=== PATIENT | female | born 1990 | race Caucasian/White ===

== ENCOUNTER 2018-10-24 08:33 | Inpatient (IN) | payer OTHER ==
[2018-10-24] MEDS ORDERED: Buffered Lidocaine 1% SYRIN* 1 ML/SYRINGE INTRADERM ONE (08:58)
[2018-10-24] MEDS ORDERED: Lactated Ringers 1000 ML Bag* 1,000 ML IV ONE ×2 (08:58→10:34)
[2018-10-24] MEDS ORDERED: Lactated Ringers 1000 ML Bag* 1,000 ML IV SCH ×4 (09:00→21:00)
[2018-10-24] MEDS ORDERED: OBEPIDURAL* 250 ML EPIDURAL ONE (09:37)
[2018-10-24 09:40] LABS: ABS Basophils 0 10^3/ul (0-0.2); ABS Eosinophils 0.1 10^3/ul (0-0.6); ABS Lymphocytes 1.8 10^3/ul (1.0-4.8); ABS Monocytes 0.8 10^3/ul (0-0.8); ABS Neutrophils 8.4 10^3/ul (1.5-7.7); ABS Nucleated RBC 0 10^3/ul; Eosinophil % 0.5 %; Hematocrit 36 % (33-41); Hemoglobin 12.3 g/dL (12.0-16.0); Lymphocyte % 16.6 %; Mean Corpuscular HGB Conc 34 g/dL (31-36); Mean Corpuscular Hemoglobin 30 pg (27-31); Mean Corpuscular Volume 88 fL (80-97); Nucleated Red Blood Cells % 0.2; Platelet Count 202 10^3/uL (150-450); Red Blood Count 4.11 10^6 /uL (3.70-4.87); Red Cell Distribution Width 13 % (10.5-15); White Blood Count 11.1 10^3/uL (3.5-10.8)
--- NOTE | 2018-10-24 09:49 | HP ---
General Information - Reason for Visit 28 yo at 40 weeks 1/7 days reports onset of strong uterine contractions about 4-5 minutes apart beginning at 0630. Denies LOF. - General Information Maternal Age: 28 Grav: 2 Para: 1 SAB: 0 IEA: 1 Estimated Due Date: 10/23/18 Determined By: LMP Maternal Blood Type and Rh: A Positive - Results this Serology/RPR Result: Non-Reactive Rubella Result: Immune HBsAg Result: Negative HIV Result: Negative GBS Culture Result: Negative Past Medical History Delivery History: See Records - Primipara Pertinent Past Medical History: Non-Contributory Pertinent Past Surgical History: None Pertinent Family History: See Records - hypertension - Antepartal Records Antepartal Records: Reviewed, Uncomplicated Review of Systems Constitutional: Uncomfortable CV Complaint: No Respiratory: Shortness of Breath: No Gastrointestinal: No Nausea/Vomiting, Normal Bowel Movement Genitourinary: No Dysuria, No Bleeding, No Leaking Fluid Musculoskeletal: No Epigastric Pain, Contractions Neurological: No Headache, No Visual Changes Movement: Normal Exam Allergies/Adverse Reactions: Allergies No Known Allergies Allergy (Verified 10/24/18 08:52) T: 98.0, P:70, R:18, B/P: 140/84 Lab Values - Entire Visit: Laboratory Tests 10/24/18 09:20 WBC 11.1 H RBC 4.11 Hgb 12.3 Hct 36 MCV 88 MCH 30 MCHC 34 RDW 13 Plt Count 202 MPV 10.0 Neut % (Auto) 75.7 Lymph % (Auto) 16.6 Henderson % (Auto) 6.9 Eos % (Auto) 0.5 Baso % (Auto) 0.3 Absolute Neuts (auto) 8.4 H Absolute Lymphs (auto) 1.8 Absolute Monos (auto) 0.8 Absolute Eos (auto) 0.1 Absolute Basos (auto) 0 Absolute Nucleated RBC 0 Nucleated RBC % 0.2 - Measurements Height: 5 ft 4.25 in Weight: 66.224 kg Weight in lbs: 146.585537 Body Mass Index (BMI): 24.8 Pre- Weight: 49.895 kg Weight Gained This : 36 lbs and 0 ozs - Exam Breast: Breast Exam Deferred CVA: No CVA Tenderness Extremities: No Edema Heart: Normal Rhythm/Heart Sounds HEENT: No Significant Findings Lungs: Clear Bilaterally Rectal: Rectal Exam Deferred Reflexes: DTR 2+ Thyroid: No Thyromegaly - Abdominal Exam Abdomen Exam: Non-Tender, Fundal Height Consistent with Dates - Ultrasound/Biophysical Profile Ultrasound Status: Not Done Targeted Exam Findings Estimated Weight: 6.5 lb Cervical Exam: 5cm Effacement: 100% Station: 0 - on admission Presenting Part: Vertex Bleeding/Discharge: Bloody Show EFM Findings - External Monitor Findings Baseline Heart Rate: 120 External Monitor Findings: Accelerations Present, No Pattern of Variable or Late Decelerations, Variability Moderate, Baseline Stable Contractions: Regular, Strong, 45-90 Seconds Contraction Frequency: q3min Assessment/Plan - Assessment 28 yo at 40-1/7 weeks reports onset of strong uterine contractions every 4- 5 minutes apart beginning at 0630. movement is normal, denies leaking of fluid. - Plan Plan: Admit - Anticipate Vaginal Delivery Plan Comment: Patient in active labor on arrival, coping well. At this time requests an epidural, anesthesia has arrived - Date/Time of Admission Date of Admission: 10/24/18 Time of Admission: 09:05
[2018-10-24] MEDS ORDERED: Lactated Ringers 1000 ML Bag* 500 ML IV PRN ×2 (10:34)
[2018-10-24] MEDS ORDERED: Famotidine TAB* 20 MG PO PRN (10:34)
[2018-10-24] MEDS ORDERED: Sodium Citrate/Citric Acid* 15 ML UDC PO PRN (10:34)
[2018-10-24] MEDS ORDERED: Phenylephrine 40 MCG/ML SYRINGE IV PUSH PRN ×2 (10:34)
--- NOTE | 2018-10-24 10:55 | PN ---
Progress Note - Progress Note Date of Service: 10/24/18 SOAP: Subjective: Pt received epidural, somewhat one-sided. Dr. Douglas offered to bolus or reposition, but pt declines, states level of discomfort is acceptable. Reports some lower sensation on the right, and some back pain with ctx. Coping well. at bedside, supportive. Objective: FHR: Baseline 125, moderate variability, + accels, no decels UCs: 2-4 minutes, strong Membranes intact Cervical exam deferred, last exam was 6cm/ 100%/ 0 station BP: have been mildly elevated, most recent 136/86 Assessment: 28 year old in active labor, moderately comfortable with epidural, coping well. No evidence of acidemia. BP elevated, stable. Membranes intact. Plan: Monitor BP, will consider PEC labs if it remains elevated. Will send urine for protein. Anticipate .
[2018-10-24] MEDS ORDERED: OBEPIDURAL* 250 ML EPIDURAL SCH (11:00)
[2018-10-24 11:33] LABS: Urine Appearance Cloudy; Urine Bacteria Absent (Absent); Urine Bilirubin Negative (Negative); Urine Blood 1+ (Negative); Urine Color Yellow; Urine Glucose Negative (Negative); Urine Ketones Negative (Negative); Urine Nitrite Negative (Negative); Urine Protein Negative (Negative); Urine Red Blood Cell 3+(>10/hpf) (Absent); Urine Specific Gravity 1.019 (1.010-1.030); Urine Squamous Epithelial Cell Present (Absent); Urine Urobilinogen Negative (Negative); Urine White Blood Cell 1+(6-10/hpf) (Absent)
--- NOTE | 2018-10-24 13:08 | PN ---
Progress Note - Progress Note Date of Service: 10/24/18 SOAP: Subjective: Pt very comfortable with epidural, happy with decision to get it. Objective: Cervix: 8-9 cm/ 100%/ 0 station/ vtx/ bulging bag FHR: Baseline 135/ moderate variability/ + accels/ no decels UCs: 2-3 minutes membranes intact BP 146/75 Assessment: Pt making good progress. No evidence of acidemia or chorioamnionitis. BP remains stable, mildly elevated. Urinalysis negative for protein. Plan: Consider AROM if SROM does not occur. Anticipate .
--- NOTE | 2018-10-24 14:56 | PN ---
Progress Note - Progress Note Date of Service: 10/24/18 SOAP: Subjective: Pt reports some increased pressure. Fairly comfortable, coping well. Pt's states that she is nervous. Denies headache, denies vision changes. Objective: FHR: baseline 125, moderate variability, + accels, no decels UCs: Q2 BP: 155/89 Cervix: 9cm/ bulging bag/ 100%/ 0 station Assessment: 28 year old in active labor, no evidence of acidemia, with elevated BPs, possible gestational HTN vs preeclampsia, labs pending. Membranes intact. Making good progress. Plan: Consider AROM. Try side-lying position with peanut ball. Anticipate .
[2018-10-24 15:26] LABS: Albumin 3.6 g/dL (3.2-5.2); Albumin/Globulin Ratio 1.4 (1-3); BUN/Creatinine Ratio 17.2 (8-20); Calcium 8.6 mg/dL (8.6-10.3); EGFR African American 131.8 (>60); Globulin 2.5 g/dL (2-4); Potassium 3.9 mmol/L (3.5-5.0); Total Bilirubin 0.4 mg/dL (0.2-1.0); Total Protein 6.1 g/dL (6.4-8.9); Uric Acid 5.2 mg/dL (2.3-6.6)
--- NOTE | 2018-10-24 16:28 | PN ---
Progress Note - Progress Note Date of Service: 10/24/18 SOAP: Subjective: Pt comfortable w/ ctx Objective: Pt with prolonged decel as low as 80 but returning to >100 several times before return to baseline. Total length of decel 7 minutes, resolved with position change and O2. FHR currently baseline 140/ moderate variability/+ accels Cervix: fully dilated, bulging bag of monique, +1 station BP:148/82 Ctx Q 1-2 minutes Assessment: Pt fully dilated. Deceleration resolved, currently no evidence of acidemia. BP remains elevated but stable. Plan: FHR now recovered following decel. Will initiate trial of pushing, consider AROM.
[2018-10-24] MEDS ORDERED: Oxytocin in LR* 20 UNITS/1,000 ML BAG IVPB ONE (16:53)
--- NOTE | 2018-10-24 19:53 | OP ---
Operative Report - Blank - Operative Report Date of Operation: 10/24/18 Note: Operative report Preop diagnosis-Spontaneous vaginal delivery with a 3rd degree vaginal/perineal laceration Post Op diagnosis- Same Procedure- Repair of vaginal 3rd degree laceration Surgeon-Dr. Jorge Caldwell EBL none Anesthesia 10cc 15 lidocaine local infiltration Complications none Findings. Pelvic exam revealed a third degree laceration extending from the mid vagina superiorly to the the superior epithelium of the external rectum. Gloved exam did not revealed extension into the rectal mucosa. Procedure. The patient was in the delivery room in dorsal lithotomy position. Exam revealed findings as noted above. The borders of the laceration were infiltrated with 1% lidocaine. The patient reported numbing of the surgical site. The laceration was repaired with a mixed of interrupted, continous and subcuticular sutures. There was good approximation of the submucous vaginal layer, the perineal muscle capsule and the subcutaneous layer of the perineum and superior aspect of the external rectal epithelium. Patient tolerated the procedure well. Instrument and sponge counts were wnl.
[2018-10-24] MEDS ORDERED: Glycerin ADULT SUPP PR PRN (20:15)
[2018-10-24] MEDS ORDERED: Acetaminophen TAB* 325 MG PO PRN (20:15)
[2018-10-24] MEDS ORDERED: Simethicone TAB* 80 MG TAB.CHEW PO SCH (21:00)
[2018-10-24] MEDS ORDERED: Oxytocin in LR* 20 UNITS/1,000 ML BAG IVPB SCH (21:00)
[2018-10-24] MEDS: Docusate CAP* 100 MG PO SCH (21:28)
[2018-10-24] MEDS: Witch Hazel PAD* JAR TOPICAL PRN (21:28)
[2018-10-24] MEDS: Dibucaine 1% 28.35 GM TUBE PR PRN (21:28)
[2018-10-24] MEDS: Ibuprofen TAB* 600 MG PO PRN (21:28)
--- NOTE | 2018-10-24 22:09 | PROCNOTE ---
[facility] OB: Delivery Note - Delivery A Date of : 10/24/18 Time of : 18:18 [place] Sex: Female Weight at : 3.345 kg Score 1 Minute: 8 Score 5 Minutes: 9 Gestational Age in Weeks and Days at Delivery: 40 Weeks and 1 Days Delivery Method: Spontaneous Vaginal Labor: Spontaneous Did Patient attempt ?: N/A, No Previous Amniotic Fluid: Meconium Estimated Blood Loss: 500 Anesthesia/Analgesia: CEI for Labor Delivered By: Keisha Rivera - Nursery Level of Nursery: Regular/Bedside - Perineum Perineal Injury: 3rd Degree Extension - repaired by Dr. Caldwell Perineal Repair: by Dr. Caldwell - Events Delivery Events of Note: Pitocin Only After Delivery, Supplemental O2 to Mother - briefly following deceleration - Additional Delivery Notes Additional Delivery Notes: Pt admitted to labor and delivery in spontaneous labor at 40 1/7 weeks gestation. Pt made steady progress. She eventually requested and received an epidural with good relief of pain. Pt continued to make steady progress. At full dilation AROM performed to meconium-stained fluid. Pt coached on pushing and began to push with good effort and steady descent. As 's head just began to be visible with pushing, pt delivered head with one strong push. Shoulders followed easily. Infant placed on maternal abdomen with spontaneous cry and HR>100 bpm. After cord pulsation ceased cord clamped x2 and cut. Placenta soon delivered with gentle cord traction, jennifer with trailing membranes, teased out with clamps. Pt's bleeding was minimal after an initial gush, fundus firm. Pitocin started at 200 cc/ hr. Evaluation of perineum revealed third degree laceration, bleeding moderately. Dr. Caldwell called to bedside and pressure applied to bleeding laceration. Dr. Caldwell performed repair resulting in good tissue approximation and hemostasis. Pt and stable at this time, anticipate normal course.
[2018-10-25] MEDS ORDERED: Lidocaine 1% INJ* 10 MG/ML 30 ML SDV ONE (00:35)
[2018-10-25] MEDS: Ibuprofen TAB* 600 MG PO PRN ×3 (05:15→20:24)
[2018-10-25 07:27] LABS: Hematocrit 25 % (33-41); Hemoglobin 8.5 g/dL (12.0-16.0); Mean Corpuscular HGB Conc 34 g/dL (31-36); Mean Corpuscular Hemoglobin 30 pg (27-31); Mean Corpuscular Volume 87 fL (80-97); Mean Platelet Volume 9.5 fL (7.4-10.4); Platelet Count 163 10^3/uL (150-450); Red Blood Count 2.88 10^6 /uL (3.70-4.87); Red Cell Distribution Width 13 % (10.5-15); White Blood Count 17.5 10^3/uL (3.5-10.8)
[2018-10-25 07:33] LABS: ABS Basophils 0.1 10^3/ul (0-0.2); ABS Eosinophils 0 10^3/ul (0-0.6); ABS Lymphocytes 1.5 10^3/ul (1.0-4.8); ABS Monocytes 1.1 10^3/ul (0-0.8); ABS Neutrophils 15.3 10^3/ul (1.5-7.7); ABS Nucleated RBC 0 10^3/ul; Eosinophil % 0.1 %; Lymphocyte % 8.1 %; Nucleated Red Blood Cells % 0
[2018-10-25] MEDS: Dibucaine 1% 28.35 GM TUBE PR PRN (08:13)
[2018-10-25] MEDS: Witch Hazel PAD* JAR TOPICAL PRN (08:13)
[2018-10-25] MEDS: Ferrous Gluconate TAB* 324 MG TAB PO SCH ×2 (08:13→20:24)
[2018-10-25] MEDS: Docusate CAP* 100 MG PO SCH ×3 (08:13→20:24)
[2018-10-26] MEDS: Ibuprofen TAB* 600 MG PO PRN ×4 (02:00→21:10)
--- NOTE | 2018-10-26 07:40 | PTEDU ---
Patient Name: ROBERTO ALLEN ROBERTO ALLEN selected video: Follow Me Mum: The [facility]rey[facility] to Successful to view on 019 at 7:38:28 AM [id number]
[2018-10-26] MEDS: Docusate CAP* 100 MG PO SCH ×3 (08:21→21:10)
[2018-10-26] MEDS: Ferrous Gluconate TAB* 324 MG TAB PO SCH ×2 (08:22→21:10)
[2018-10-26 08:59] LABS: Hematocrit 26 % (33-41); Hemoglobin 8.4 g/dL (12.0-16.0)
[2018-10-26] MEDS ORDERED: Glycerin ADULT SUPP PR ONE (11:36)
[2018-10-26] MEDS ORDERED: Sodium Phosphate ADULT ENEMA* 118 ml bottle PR ONE (17:00)
[2018-10-27] MEDS: Ibuprofen TAB* 600 MG PO PRN (05:21)
[2018-10-27] MEDS: Docusate CAP* 100 MG PO SCH (08:41)
[2018-10-27] MEDS: Ferrous Gluconate TAB* 324 MG TAB PO SCH (08:42)
--- NOTE | 2018-10-27 08:54 | PTEDU ---
Patient Name: ROBERTO ALLEN ROBERTO ALLEN selected video: BBOB: Bonding Through Infant Massage to view on 10/27/2018 at 8:53:20 AM from [id number]
[2018-10-27 09:38] VITALS: BP 142/79
== END 2018-10-27 12:45 | disposition home or self-care (01) | DRG 768 ==
LOC: MCHOBOUT 08:33 → MCHOB 09:05
PROVIDERS: ADMIT Midwife; ATTEND Midwife
PROC: 10E0XZZ Delivery of Products of Conception, External Approach (ICD-10-PCS; principal; 2018-10-24)
PROC: 0DQR0ZZ Repair Anal Sphincter, Open Approach (ICD-10-PCS; 2018-10-24)
PROC: 10907ZC Drainage of Amniotic Fluid, Therapeutic from Products of Conception, Via Natural or Artificial Opening (ICD-10-PCS; 2018-10-24)
DX: O48.0 Post-term pregnancy (principal); Z37.0 Single live birth; O70.20 Third degree perineal laceration during delivery, unspecified; O77.0 Labor and delivery complicated by meconium in amniotic fluid; O90.89 Other complications of the puerperium, not elsewhere classified; R33.8 Other retention of urine; O90.81 Anemia of the puerperium; D64.9 Anemia, unspecified; Z3A.40 40 weeks gestation of pregnancy
CPT/HCPCS: 36415; 80053; 81003; 81015; 84550; 85014; 85018; 85025; 86592; 86850; 86900; 86901; 87086; A9270-GY